=== PATIENT | male | born 1940 ===

== ENCOUNTER 2025-02-09 22:19 | Inpatient (IN) | payer OTHER ==
[~2025-02-09] VITALS: Ht 182.9 cm; Wt 128.1 kg
[2025-02-09 23:02] LABS: BASOPHILS ABSOLUTE AUTO 0.02 K/mm3 (0.00-0.23); BASOPHILS PERCENT AUTO 0 % (0-2); EOSINOPHILS ABSOLUTE AUTO 0.07 K/mm3 (0.00-0.68); EOSINOPHILS PERCENT AUTO 1 % (0-6); Hematocrit 35.2 % (37.0-53.0); Hemoglobin 11.4 g/dL (13.5-17.5); IMMATURE GRAN ABSOLUTE AUTO 0.02 K/mm3 (0.00-0.10); IMMATURE GRAN PERCENT AUTO 0 % (0-1); LYMPHOCYTES ABSOLUTE AUTO 0.48 K/mm3 (0.84-5.20); LYMPHOCYTES PERCENT AUTO 10 % (21-46); MONOCYTES ABSOLUTE AUTO 0.54 K/mm3 (0.16-1.47); MONOCYTES PERCENT AUTO 11 % (4-13); Mean Corpuscular HGB Conc 32.4 g/dL (31.5-36.5); Mean Corpuscular Volume 84 fL (80-100); NEUTROPHILS ABSOLUTE AUTO 3.70 K/mm3 (1.96-9.15); NEUTROPHILS PERCENT AUTO 77 % (41-73); NRBC ABSOLUTE 0.00 K/mm3 (0.00-0.02); NRBC Auto 0.0 /100 WBC (0.0-0.2); Platelet Count 150 K/mm3 (150-400); RDW Coefficient Variation 13.8 % (11.7-14.2); RDW Standard Deviation 42.3 fL (35.1-46.3)
[2025-02-09 23:22] LABS: Alanine Aminotransfer (ALT/SGP 16.0 U/L (12-78); Albumin, Blood 3.1 g/dL (3.4-5.0); Albumin/Globulin Ratio 0.8 (0.8-1.8); Anion Gap 5.0 mmol/L (3-11); Aspartate Aminotrans (AST/SGOT 9.0 U/L (12-37); Bilirubin, Total 0.7 mg/dL (0.1-1.0); Blood Urea Nitrogen 21.0 mg/dL (8-24); CO2, Blood 30.0 mmol/L (21-32); Calcium, Blood 8.4 mg/dL (8.5-10.1); Chloride, Blood 105.0 mmol/L (98-108); Creatinine, Blood 1.31 mg/dL (0.60-1.20); Globulin, Blood 3.7 g/dL (2.2-4.0); Glucose, Blood 301.0 mg/dL (70-99); Magnesium, Blood 1.7 mg/dL (1.6-2.4); Potassium, Blood 4.4 mmol/L (3.5-5.5); Sodium, Blood 136.0 mmol/L (136-145); Total Protein, Blood 6.8 g/dL (6.4-8.2)
[2025-02-10] VITALS (7 sets, daily range): BP systolic 116–144; BP diastolic 73–91
[2025-02-10] MEDS ORDERED: CefTRIAXone Sodium 1,000 MG in NS 100 ML IV ONE (01:30)
[2025-02-10] MEDS ORDERED: Albuterol 2.5 MG/3 ML VIAL INH SCH (01:50)
[2025-02-10] MEDS ORDERED: Ondansetron HCl 2 MG / ML 2ML Vial IV PRN (01:50)
--- NOTE | 2025-02-10 04:58 | NUR ---
PATIENT ADMITTED TO THE UNIT DURING SHIFT. PATIENT ON CPAP. ALERT AND ORIENTED X4. MED REC NOT COMPLETE DUE TO PATIENT NOT KNOWING MEDICATIONS. PATIENT ABLE TO MAKE NEEDS KNOWN. IV RAC-SALINE LOCKED. PATIENT STANDS AT BEDSIDE TO USE URINAL. CONTINUOUS PULSE OX IN PLACE. BED IN LOW POSITION WITH WHEELS LOCKED. CALL LIGHT WITHIN REACH
[2025-02-10 06:10] LABS: BASOPHILS ABSOLUTE AUTO 0.02 K/mm3 (0.00-0.23); BASOPHILS PERCENT AUTO 0 % (0-2); EOSINOPHILS ABSOLUTE AUTO 0.07 K/mm3 (0.00-0.68); EOSINOPHILS PERCENT AUTO 2 % (0-6); Hematocrit 34.5 % (37.0-53.0); Hemoglobin 11.0 g/dL (13.5-17.5); IMMATURE GRAN ABSOLUTE AUTO 0.02 K/mm3 (0.00-0.10); IMMATURE GRAN PERCENT AUTO 0 % (0-1); LYMPHOCYTES ABSOLUTE AUTO 0.49 K/mm3 (0.84-5.20); LYMPHOCYTES PERCENT AUTO 10 % (21-46); MONOCYTES ABSOLUTE AUTO 0.50 K/mm3 (0.16-1.47); MONOCYTES PERCENT AUTO 11 % (4-13); Mean Corpuscular HGB Conc 31.9 g/dL (31.5-36.5); Mean Corpuscular Volume 84 fL (80-100); NEUTROPHILS ABSOLUTE AUTO 3.68 K/mm3 (1.96-9.15); NEUTROPHILS PERCENT AUTO 77 % (41-73); NRBC ABSOLUTE 0.00 K/mm3 (0.00-0.02); NRBC Auto 0.0 /100 WBC (0.0-0.2); Platelet Count 135 K/mm3 (150-400); RDW Coefficient Variation 14.1 % (11.7-14.2); RDW Standard Deviation 43.1 fL (35.1-46.3)
[2025-02-10 06:37] LABS: Alanine Aminotransfer (ALT/SGP 15.0 U/L (12-78); Albumin, Blood 3.0 g/dL (3.4-5.0); Albumin/Globulin Ratio 0.8 (0.8-1.8); Anion Gap 6.0 mmol/L (3-11); Aspartate Aminotrans (AST/SGOT 9.0 U/L (12-37); Bilirubin, Total 0.7 mg/dL (0.1-1.0); Blood Urea Nitrogen 20.0 mg/dL (8-24); CO2, Blood 29.0 mmol/L (21-32); Calcium, Blood 8.1 mg/dL (8.5-10.1); Chloride, Blood 106.0 mmol/L (98-108); Creatinine, Blood 1.2 mg/dL (0.60-1.20); Globulin, Blood 3.7 g/dL (2.2-4.0); Glucose, Blood 278.0 mg/dL (70-99); Magnesium, Blood 1.8 mg/dL (1.6-2.4); Potassium, Blood 4.1 mmol/L (3.5-5.5); Sodium, Blood 137.0 mmol/L (136-145); Total Protein, Blood 6.7 g/dL (6.4-8.2)
[2025-02-10] MEDS ORDERED: Lactobacil 2-S.Thermo-Bifido 1 1 Cap PO SCH (09:00)
[2025-02-10] MEDS ORDERED: Enoxaparin 40 MG/0.4 ML SYR SC SCH (09:00)
[2025-02-10] MEDS ORDERED: METO50 PO (12:08)
[2025-02-10] MEDS ORDERED: PREG100 PO (12:08)
[2025-02-10] MEDS ORDERED: DULO30 PO (12:10)
[2025-02-10] MEDS ORDERED: METF500C PO (12:10)
[2025-02-10] MEDS ORDERED: LOSA25 PO (12:10)
[2025-02-10] MEDS ORDERED: ELIQUIS2.5 MG PO (12:11)
[2025-02-10] MEDS ORDERED: TRAZ50 PO (12:11)
[2025-02-10] MEDS ORDERED: DOXA4 PO (12:13)
[2025-02-10] MEDS ORDERED: ROPI1 PO (12:13)
[2025-02-10] MEDS ORDERED: ATOR20 PO (12:13)
[2025-02-10] MEDS ORDERED: ZYRTEC10 M2 PO (12:14)
[2025-02-10] MEDS ORDERED: Doxazosin Mesylate 8 MG TAB PO SCH (14:00)
[2025-02-10 14:52] LABS: pH Blood Venous 7.50 (7.34-7.37)
--- NOTE | 2025-02-10 19:07 | NUR ---
SHIFT ASSESSMENT. PT DID VERY WELL TODAY THIS MORNING WAS ENC TO REAMIN ON BIPAP WHEN NOT EATING NOR VISITING, PT SHOWED NO DISTRESS BUT WAS TAVARE[place], RT AT BEDSIDE TO MAKE MODIFICATIONS, TO BIPAP SETTING. PT WAS UP WITH MINIMAL ASSISTENCE, REMAINED ON 5L NC WHEN AMBULATING TO BATHROOM, PT WAS ABLE TO HAVE A SHOWER WITHOUT INCIDENT. NO C/O PAIN NO DISTRESS PT IN GOOD SPIRITS, CALL LIGHT WITHIN IN REACH.
[2025-02-10] MEDS ORDERED: NS 250 ML IV PRN (20:00)
[2025-02-10] MEDS ORDERED: DULoxetine HCL 30 MG Cap DR PO SCH (21:00)
[2025-02-10] MEDS ORDERED: CefTRIAXone Sodium 1,000 MG in NS 100 ML IV SCH (21:00)
[2025-02-10] MEDS ORDERED: Insulin Glargine-Yfgn 100 Unit/mL 3 ML SYR SC SCH ×2 (21:00)
[2025-02-10] MEDS ORDERED: Insulin Human Lispro 100 Units/ML 3ML Syringe SC SCH (21:00)
--- NOTE | 2025-02-11 03:38 | NUR ---
PT ALERT AND ORIENTED X4 DURING SHIFT. PATIENT ON 5 L NC WHILE AWAKE, CPAP WHILE ASLEEP. PATIENT USES URINAL AT BEDSIDE WITH NURSE ASSIST. PATIENT ABLE TO MAKE NEEDS KNOW. IV ANTIBIOTIVS GIVEN. PATIENT ABLE TO SWALLOW PILLS WHOLE. BED IN LOW POSITION WITH WHEELS LOCKED. CALL LIGHT WITHIN REACH.
[2025-02-11 04:24] VITALS: BP 108/80
[2025-02-11 05:44] LABS: Anion Gap 6.0 mmol/L (3-11); Blood Urea Nitrogen 23.0 mg/dL (8-24); CO2, Blood 30.0 mmol/L (21-32); Calcium, Blood 7.9 mg/dL (8.5-10.1); Chloride, Blood 105.0 mmol/L (98-108); Creatinine, Blood 1.31 mg/dL (0.60-1.20); Glucose, Blood 225.0 mg/dL (70-99); Potassium, Blood 3.8 mmol/L (3.5-5.5); Sodium, Blood 137.0 mmol/L (136-145)
[2025-02-11 08:13] VITALS: BP 131/89
[2025-02-11 12:08] VITALS: BP 111/71
[2025-02-11 17:23] VITALS: BP 103/74
[2025-02-11 20:40] VITALS: BP 124/85
[2025-02-11] MEDS ORDERED: Insulin Glargine-Yfgn 100 Unit/mL 3 ML SYR SC SCH (21:00)
[2025-02-12] VITALS (8 sets, daily range): BP systolic 80–138; BP diastolic 52–92
[2025-02-12] MEDS ORDERED: Albuterol 2.5 MG/3 ML VIAL INH SCH (01:50)
--- NOTE | 2025-02-12 04:35 | NUR ---
SUMMARY: PT A/OX4, CALLS APPROPRIATELY TO SPECIFY NEEDS AND IS PLEASANT AND COOPERATIVE W/CARE. HE'S UP W/SBA AND USES URINAL AD BERNA[place]TE. LASIX BEING RECEIVED AND PT IS DIURESING WELL W/BLE EDEMA IMPROVING. HE'S ON 5L O2 VIA NC AND CPAP BLEED IN AT HS W/CONT BIOX INTACT. PT REMAINS ON TELE IN AFIB/AFLUTTER AT 90'S-100'S BPM. METOPROLOL DOSE WAS DECREASED TO 5OMG PO BID PER HOME RX W/1ST DOSE PROVIDED AT HS. HE WAS INITIALLY SLIGHLTY HYPOTENSIVE BUT BP IMPROVED UPON REEVALUATION. NO ACUTE CHANGES, VSS/AFEBRILE. WILL REPORT TO DAY RN.
[2025-02-12 05:37] LABS: Anion Gap 5.0 mmol/L (3-11); Blood Urea Nitrogen 29.0 mg/dL (8-24); CO2, Blood 32.0 mmol/L (21-32); Calcium, Blood 7.6 mg/dL (8.5-10.1); Chloride, Blood 107.0 mmol/L (98-108); Creatinine, Blood 1.32 mg/dL (0.60-1.20); Glucose, Blood 127.0 mg/dL (70-99); Potassium, Blood 3.7 mmol/L (3.5-5.5); Sodium, Blood 140.0 mmol/L (136-145)
--- NOTE | 2025-02-12 18:37 | NUR ---
SUMMARY PATIENT STARTED SHIFT AT 4L NC WITH A 5L BLEED IN TO CPAP FROM HOME. PATIENT HAS BEEN WEANED DOWN TO 2L NC. WAS ON ROOM AIR FOR A BIT BUT WHILE NAPPING DEAT DOWNTO 86% ON ROOM AIR. PT WORKING WITH FLUTTER VALVE TO HELP CLEAR SECRETIONS. NO EVENTS ON TELE. DENIES PAIN. ABLE TO MAKE NEEDS KNOWN.
--- NOTE | 2025-02-13 05:07 | NUR ---
PT A&O X4, VS WNL, TELE AFIB IN LOW 100'S. O2 ON 2L WITH CONTINUOUS OXCIMETRY, AND THEN BIPAP AT NIGHT WHEN SLEEPING. PT WT STABLE, EDEMA IN LOWER EXTREMS PLUS 2-3, DID ELEVATE AT NIGHT. PT CBG 365 AT HS, RECIEVED ROUTINE 30 UNITS OF LONG ACTING AND 6 UNITS OF SSI. INDEPENDENT WITH MOBILITY, USES URINAL, INDEPENDENT WITH CALL SYSTEM. UNSURE WHAT PLAN IS FOR D/C.
[2025-02-13 05:15] VITALS: BP 142/78
[2025-02-13 05:48] LABS: Anion Gap 5.0 mmol/L (3-11); Blood Urea Nitrogen 26.0 mg/dL (8-24); CO2, Blood 33.0 mmol/L (21-32); Calcium, Blood 7.8 mg/dL (8.5-10.1); Chloride, Blood 107.0 mmol/L (98-108); Creatinine, Blood 1.27 mg/dL (0.60-1.20); Glucose, Blood 186.0 mg/dL (70-99); Potassium, Blood 3.7 mmol/L (3.5-5.5); Sodium, Blood 141.0 mmol/L (136-145)
[2025-02-13 07:47] VITALS: BP 132/75
[2025-02-13 11:57] VITALS: BP 148/95
[2025-02-13] MEDS ORDERED: Polyethylene Glycol 3350 17 gm PO PRN (12:15)
[2025-02-13 15:28] VITALS: BP 148/95
[2025-02-13 19:20] VITALS: BP 154/98
--- NOTE | 2025-02-13 19:25 | NUR ---
SUMMARY PT STARTED SHIFT AT 2L NC. WAS ABLE TO WEAN TO 1L AND SATTING 90-93%. PT CONTINUING TO WORK WITH FLUTTER VALVE. COUGH AND PRODUCTIVITY HAS DECREASED. PT CONT TO HAVE WHEEZING IN UPPER LOBES AND CRACKLES IN LOWER. BREATHING TREATMENTS PER RT. PT STAND-BY IN ROOM. ABLE TO MAKE NEEDS KNOWN. CALL LIGHT IN REACH. NONSKID SOCKS ON.
[2025-02-14 00:19] VITALS: BP 155/108
--- NOTE | 2025-02-14 03:48 | NUR ---
SHIFT SUMMARY PT IS VERY PLEASANT, A/O X4, COOPERATIVE WITH CARE AND ABLE TO MAKE HIS NEEDS KNOWN. O2 @1L VIA NASAL CANNULA, O2 SAT'S MID 90'S AT HS. RT PROVIDING NEB TX. CONTINOUS PULSE OXIMETER IN PLACE. PT DENIES SOB. PRODUCTIVE COUGH, AUGUSTIN COLOR SPUTUM, SMALL AMOUNT NOTED. LUNG SOUNDS CLEAR UPPER LOBES, COARSE/DIMINISHED AT BASES PER AUSCULTATION. CP-PAP AT NIGHT HRS. HS B. A-FIB @109 AT HS. A-FLUTTER @91 AT 0345 PER CHRONOGRAPH OPERATOR. PT DENIES CP/PRESSURE DURING THIS SHIFT. BED AT THE LOWEST POSITION, CALL LIGHT W/I REACH. PT DENIES PAIN AND DISCOMFORT. ALL NEEDS MET.
[2025-02-14 04:38] VITALS: BP 116/85
[2025-02-14 07:51] VITALS: BP 125/73
[2025-02-14 11:34] VITALS: BP 136/93
[2025-02-14] MEDS ORDERED: CEFD300 PO (13:43)
--- NOTE | 2025-02-14 14:31 | NUR ---
DISCHARGE REVIEWED DISCHARGE INSTRUCTIONS W/PATIENT AND SON WHO VERBALIZED UNDERSTANDING, IV & TELE REMOVED, NEW RX FA[facility]ED TO [facility], O2 DELIVERED, PT TRANSPORTEDN VIA WHEELCHAIR ON 2L 02 TO DISCHARGE IN PRIVATE VEHICLE @ 1400, ALL BELONGINGS SENT W/PATIENT.
== END 2025-02-14 14:13 | disposition home or self-care (01) | DRG 871 ==
LOC: ER 22:19 → MEDS 02-10 01:46
PROVIDERS: Internal Medicine; Student in an Organized Health Care Education/Training Program; ADMIT Student in an Organized Health Care Education/Training Program
DX: A41.9 Sepsis, unspecified organism (principal); J18.9 Pneumonia, unspecified organism; J96.01 Acute respiratory failure with hypoxia; J96.02 Acute respiratory failure with hypercapnia; J90 Pleural effusion, not elsewhere classified; I50.30 Unspecified diastolic (congestive) heart failure; I48.0 Paroxysmal atrial fibrillation; R65.20 Severe sepsis without septic shock; E11.65 Type 2 diabetes mellitus with hyperglycemia; G47.33 Obstructive sleep apnea (adult) (pediatric); N18.30 Chronic kidney disease, stage 3 unspecified; D63.1 Anemia in chronic kidney disease; E11.22 Type 2 diabetes mellitus with diabetic chronic kidney disease; Z88.2 Allergy status to sulfonamides; Z79.01 Long term (current) use of anticoagulants; Z87.01 Personal history of pneumonia (recurrent); Z79.899 Other long term (current) drug therapy
CPT/HCPCS: 36415; 71045; 71260; 80048; 80053; 82803; 82947; 83036; 83605; 83735; 83880; 84145; 84484; 85025; 87040; 87070; 87205; 93005; 93010; 94640; 94660; 94664; 94761; 94762; 99285-25; A9270; C8929; J0456; J0696; J1650; J1815; J1938; J7050; Q9957; Q9967